=== PATIENT | female | born 1995 | race Caucasian/White ===

== ENCOUNTER 2017-10-14 10:24 | Outpatient (CLI) | payer OTHER ==
[~2017-10-14] VITALS: Ht 162.6 cm; Wt 81.4 kg
[~2017-10-14 10:24] MED LIST: ALBU18HF PO; BUTA1CAP57 PO; DOCU100C24 PO; EPI PEN SQ; GABA800T2 PO; IBUP-1223 PO; LEVO25TA2 PO; MONT10TA6 PO; NORT50CA PO; OMEP40CA6 PO; ONDA4TAB7 PO; PT WILL BRING LIST; SUCR1TAB PO; TRAM50TA2 PO
[2017-10-14] MEDS ORDERED: PREN1TAB60 PO (10:37)
[2017-10-14 10:42] VITALS: BP 116/60
== END 2017-10-14 11:15 | disposition home or self-care (01) ==
LOC: LDOP 10:24
PROVIDERS: ATTEND Obstetrics & Gynecology Maternal & Fetal Medicine
DX: O36.8130 Decreased fetal movements, third trimester, not applicable or unspecified (principal); O99.283 Endocrine, nutritional and metabolic diseases complicating pregnancy, third trimester; O99.53 Diseases of the respiratory system complicating the puerperium; J45.909 Unspecified asthma, uncomplicated; E07.9 Disorder of thyroid, unspecified; Z3A.32 32 weeks gestation of pregnancy
CPT/HCPCS: 59025; 99211; G0463

== ENCOUNTER 2017-12-07 20:48 | Outpatient (CLI) | payer OTHER ==
[~2017-12-07] VITALS: Ht 162.6 cm; Wt 84.5 kg
[~2017-12-07 20:48] MED LIST changes: +PREN1TAB60 PO
[2017-12-07 21:08] VITALS: BP 128/76
[2017-12-07] MEDS ORDERED: ZOLPIDEM 10MG TABLET ONE (21:58)
[2017-12-07] MEDS ORDERED: ZOLPIDEM 10MG TABLET PO PRN (22:00)
== END 2017-12-07 22:06 | disposition home or self-care (01) ==
LOC: LDOP 20:48
PROVIDERS: ATTEND Obstetrics & Gynecology Maternal & Fetal Medicine
DX: O26.893 Other specified pregnancy related conditions, third trimester (principal); R10.9 Unspecified abdominal pain; Z3A.40 40 weeks gestation of pregnancy
CPT/HCPCS: 59025; 99211; G0463